=== PATIENT | female | born 1960 | race Caucasian/White ===

== ENCOUNTER → 2017-12-24 08:57 | Outpatient (CLI) | payer OTHER, SELFPAY ==
[2017-12-24 10:43] LABS: Cholesterol 208 mg/dL (200); High Density Lipoprotein 101 mg/dL; Triglycerides 76 mg/dL; Very Low Density Lipoprotein 15 mg/dL (5-40)
== END ==
PROVIDERS: Family Provider Family Medicine; PCP Family Medicine; Visit Provider Family Medicine
DX: E78.5 Hyperlipidemia, unspecified (principal); E11.9 Type 2 diabetes mellitus without complications
CPT/HCPCS: 36415; 80061; 83036

== ENCOUNTER 2018-01-14 13:07 | Day surgery (SDC) | payer OTHER, SELFPAY ==
[2018-01-11 16:58] LABS: Absolute Lymphocyte Count 1.43 X10^3/ul (0.83-4.51); Absolute Neutrophil Count 2.9 X10^3/uL (2.0-7.7); Basophil# 0.02 X10^3/uL; Basophil% 0.4 % (0-1); Eosinophil# 0.14 X10^3/uL; Eosinophils% 2.9 % (0-5); Hematocrit 36.6 % (37-47); Lymphocyte # 1.43 X10^3/ul (4.0); Lymphocyte % 29.4 % (19-41); Mean Corp Hgb Conc 32.8 g/gl (32-36); Mean Corpuscular Hgb 28.3 pg (27.0-32.0); Mean Corpuscular Volume 86.3 fL (81-99); Mean Platelet Vol. 10.1 fl (6.2-12.0); Monocyte# 0.36 X10^3/uL; Monocyte% 7.4 % (0-10); Neutrophil # 2.91 X10^3/uL (2.7-7.7); Neutrophil % 59.7 % (47-70); Platelet Count 234 K/mm3 (150-450); RBC Distribution Width CV 13.4 % (11.6-14.6); RBC Distribution Width SD 42.3 fl (35.1-43.9); Red Blood Count 4.24 M/mm3 (4.2-5.4); White Blood Count 4.9 K/mm3 (4.4-11.0)
[2018-01-11 17:00] LABS: POSITIVE COUNT NO; POSITIVE DIFFERENTIAL NO; POSITIVE MORPHOLOGY NO
[2018-01-11 17:35] LABS: ALB/GLOB Ratio 1.3 RATIO (0.9-2.4); AST(SGOT) 15 U/L (15-37); Alanine Aminotransfer ALT/SGPT 25 U/L (13-56); Alkaline Phosphatase 68 U/L (45-117); Anion Gap 7 (5-15); BUN 22 mg/dL (7-18); BUN/Creat Ratio 22.1 RATIO (10-20); Calcium,Total 8.9 mg/dL (8.5-10.1); Chloride 101 mmol/L (98-107); EST Glomerular Filtration Rate 61 mL/min (>60); Est Glom Filt Rate - Afr Amer 73 mL/min (>60); Globulin 3.1 g/dL (2.2-4.2); Glucose 236 mg/dL (74-106); Potassium 3.6 mmol/L (3.5-5.1); Protein, Total 7.1 g/dL (6.4-8.2); Sodium Level 137 mmol/L (136-145)
[2018-01-14 13:38] VITALS: BP 139/73; PULSE 76; RESP 16; TEMP 36.6; O2SAT 100; BMI 20.2
[2018-01-14 13:56] LABS: Bedside Glucose 102 mg/dL (70-110)
--- NOTE | 2018-01-14 14:45 | RAD_ITS ---
STUDY: X-RAY - LEFT FOOT CLINICAL: Female, 57 years old. Removal of foreign body in OR TECHNIQUE: 9 view(s) of the foot. COMPARISON: None. FINDINGS: 9 saved views were performed , as radiology support for c-arm imaging in the operating room. This is not a diagnostic examination. Images for for documentation purposes only. A total of 16 images acquired with total exposure time 3 minutes 43 seconds and a total DAP of [phone]. RAD/Foot 2 Views IMPRESSION: Fluoroscopic-guided images as above. Electronically Signed: Hortencia Bernard MD at 0:27 EST , Service support ,
[2018-01-14 16:45] LABS: Bedside Glucose 87 mg/dL (70-110)
[2018-01-14] MEDS: Cefazolin 2 GM in 0.9% Normal Saline 100 ML IV (16:45)
[2018-01-14] MEDS: Bupivacaine 0.25% 30 ML Vial (17:07)
--- NOTE | 2018-01-14 17:30 | DCINST_ITS ---
Discharge Diet: Light diet - advance as tolerated Weight Bearing Status: Partial weight bearing - Avoid weight on left forefoot ( ball of foot), ok to apply weight on heel Keep extremity elevated above heart level: Left Leg - Keep left foot elevated as much as possible Call your doctor if your incision/area has: Continuous Slow Oozing, Sudden Increased Bleeding, Increased Pain/ Swelling, Foul Smelling Discharge Call your doctor if you observe: Fever of 101 or Higher, Shortness of breath, Chest pain, Increased palpitations (irregular heartbeat), Calf discomfort, Uncontrolled pain Cleanse incision/area with: Do not get Incision Wet, Keep Dressing Clean & Dry Allergies/Adverse Reactions: Allergies Sulfa (Sulfonamide Antibiotics) Adverse Reaction (Verified 01/11/18 14:46) Other over 30 years ago Medications to take at Discharge Amitriptyline HCl 10 mg PO QHS 01/11/18 Metformin HCl 500 mg PO DAILY 01/11/18 Pravastatin Sodium [Pravachol] 10 mg PO QHS 01/11/18 Hydrocodone/Acetaminophen [Vicodin 5-300 mg Tablet] 1 tab PO Q6H PRN PRN 5 Days #20 tab 01/14/18 The following prescriptions were given: Hydrocodone/Acetaminophen [Vicodin 5-300 mg Tablet] 1 tab PO Q6H PRN PRN 5 Days #20 tab PRN Reason: Pain Primary Care Physician: Ryan Nava MD [Primary Care Provider] - Please Follow Up With: Justyn Moore DPM When: within 1 week or sooner if needed
--- NOTE | 2018-01-14 17:30 | PCM.OPRPT ---
Report of Operation Date of Procedure: 01/14/18 Pre-Operative Diagnosis: Foreign body left foot Post-Operative Diagnosis: Same Surgery/Procedure Performed:: Removal of foreign body from left foot Description of Surgical Findings:: piece of seashell in left foot which was removed public health training assistant: Yes - Dr. Blackwell Type of Anesthesia:: Local MAC Specimen's removed: None Estimated Blood Loss (mL): 1mL Description of Procedure: Indications: This is a 57 year old female who stepped on a seashell several months ago. A piece of the shell broke off and retained in the plantar left foot, which is causing pain and symptoms. This piece of shell is seen on xray. Given the findings she elected to have it removed. This procedure was discussed with her in detail, reviewed the possible benefits vs risks. Reviewed the goals and the expectations. Typical/estimated healing time was discussed and reviewed with her. All of her questions were answered. The consent forms were reviewed with her and she freely signed them. Operative procedure: The patient was brought back into the operating room and was placed on the operating room table in the supine position. She was carefully secured to the operating room table with a safely belt around her waist. The patient was given 2g of IV ancef for antibiotic prophylaxis. The patient received MAC anesthesia, and after the overlying skin was cleansed with 70% isopropyl alcohol 0.25% Marcaine was used to perform a block around the foreign body site. A well padded pneumatic tourniquet was applied around her left ankle. The left foot was scrubbed, prepped, draped in the usual aseptic fashion. The left foot was elevated for 2 minutes and the left ankle pneumatic tourniquet was inflated to 250mmHg. The foreign body was identified using intra operative fluoroscopy. A small linear skin incision was made to the plantar medial forefoot sub 1st intermetatarsal space. The patient did have pain so additional local anesthesia was given using 1% Lidocaine plain. Pain was controlled. Careful blunt dissection was completed down through the subcutaneous tissue layer to the foreign body. It was deep in the fascial space. The foreign body was identified using fluoroscopy and removed using a hemostat. The foreign body was hard, sharp and white in appearance consistent with a broken piece of seashell. The foreign body was placed in a sterile container and was given to the patient afterwards. Removal of the foreign body was confirmed on intra operative fluoroscopy. All remaining tissues appeared healthy and viable. There was no evidence of infection. The site was flushed out with copious amounts of normal saline solution. The skin was reapproximated using 3-0 Nylon. A dressing was applied which consisted of Betadine soaked adaptic, 4x4 gauze, Kerlix and joe bandage. The patient tolerated the above procedure well and the anesthesia well with no complications. Post operative orders were placed. Post operative instructions were reviewed with patient and her . Vicodin 5mg/300mg 1 PO q 6 hours was prescribed for pain control. The patient is to follow up in 1 week or sooner if needed. Grafts/Implants Used: None - Complications None
[2018-01-14 17:31] VITALS: BP 139/73; BP 141/76; PULSE 64; RESP 16; TEMP 37.2; O2SAT 99
[2018-01-14 17:35] VITALS: BP 136/77; BP 139/73; PULSE 65; RESP 16; O2SAT 100
[2018-01-14 17:40] VITALS: BP 127/73; BP 139/73; PULSE 64; RESP 16; O2SAT 100
[2018-01-14 17:47] VITALS: BP 139/73; BP 140/74; PULSE 63; RESP 16; TEMP 36.7; O2SAT 100
[2018-01-14 18:03] VITALS: BP 139/73
== END 2018-01-14 18:33 | disposition home or self-care (01) ==
LOC: SDC 13:08 → AC 13:11
PROVIDERS: Family Provider Family Medicine; PCP Family Medicine; Visit Provider Podiatrist
PROC: (CPT 28190; principal; 2018-01-14 14:30)
DX: M79.5 Residual foreign body in soft tissue (principal); E11.9 Type 2 diabetes mellitus without complications; E78.00 Pure hypercholesterolemia, unspecified; Z79.84 Long term (current) use of oral hypoglycemic drugs; Z79.899 Other long term (current) drug therapy
CPT/HCPCS: 28190; 36415; 73620; 76000; 80053; 82962; 85025; J7120; J2405

== ENCOUNTER → 2018-04-04 09:07 | Outpatient (CLI) | payer OTHER, SELFPAY ==
[2018-04-04 10:12] LABS: AST(SGOT) 16 U/L (15-37); Alanine Aminotransfer ALT/SGPT 22 U/L (13-56); Albumin, Serum 4.2 g/dL (3.2-5.0); Alkaline Phosphatase 70 U/L (45-117); Anion Gap 7 (5-15); BUN 23 mg/dL (7-18); BUN/Creat Ratio 28.1 RATIO (10-20); Bilirubin, Direct 0.19 mg/dL (0.00-0.30); Calcium,Total 8.8 mg/dL (8.5-10.1); Chloride 105 mmol/L (98-107); Cholesterol 199 mg/dL (200); Creatinine, Serum 0.82 mg/dL (0.55-1.02); EST Glomerular Filtration Rate 76 mL/min (>60); Est Glom Filt Rate - Afr Amer 92 mL/min (>60); Globulin 3.3 g/dL (2.2-4.2); Glucose 111 mg/dL (74-106); High Density Lipoprotein 95 mg/dL; Potassium 4.3 mmol/L (3.5-5.1); Protein, Total 7.5 g/dL (6.4-8.2); Sodium Level 137 mmol/L (136-145); Triglycerides 49 mg/dL; Very Low Density Lipoprotein 10 mg/dL (5-40)
[2018-04-04 10:15] LABS: Microalbumin:Creatinine Ratio 9.4 mg/g CRE (<30 mg/g CRE)
[2018-04-04 10:25] LABS: Hemoglobin A1c 7.2 % (4.2-6.3)
== END ==
PROVIDERS: Family Provider Family Medicine; PCP Family Medicine; Visit Provider Family Medicine
DX: E11.9 Type 2 diabetes mellitus without complications (principal); E78.5 Hyperlipidemia, unspecified
CPT/HCPCS: 36415; 80048; 80061; 80076; 82043; 82570; 83036

== ENCOUNTER → 2018-11-07 07:46 | Outpatient (CLI) | payer OTHER, SELFPAY ==
[2018-11-07 09:04] LABS: AST(SGOT) 16 U/L (15-37); Alanine Aminotransfer ALT/SGPT 25 U/L (13-56); Albumin, Serum 4.2 g/dL (3.2-5.0); Alkaline Phosphatase 71 U/L (45-117); Anion Gap 6 (5-15); BUN 22 mg/dL (7-18); BUN/Creat Ratio 23.2 RATIO (10-20); Bilirubin, Direct 0.18 mg/dL (0.00-0.30); Calcium,Total 9.6 mg/dL (8.5-10.1); Chloride 105 mmol/L (98-107); Cholesterol 237 mg/dL (200); Creatinine, Serum 0.95 mg/dL (0.55-1.02); EST Glomerular Filtration Rate 64 mL/min (>60); Est Glom Filt Rate - Afr Amer 78 mL/min (>60); Globulin 3.6 g/dL (2.2-4.2); Glucose 137 mg/dL (74-106); High Density Lipoprotein 107 mg/dL; Potassium 4.1 mmol/L (3.5-5.1); Protein, Total 7.8 g/dL (6.4-8.2); Sodium Level 138 mmol/L (136-145); Triglycerides 79 mg/dL; Very Low Density Lipoprotein 16 mg/dL (5-40)
== END ==
PROVIDERS: Family Provider Family Medicine; PCP Family Medicine; Referring Provider Family Medicine; Visit Provider Family Medicine
DX: E11.9 Type 2 diabetes mellitus without complications (principal)
CPT/HCPCS: 36415; 80048; 80061; 80076

== ENCOUNTER → 2019-08-08 08:10 | Outpatient (CLI) | payer OTHER, SELFPAY ==
[2019-08-08 08:55] LABS: Anion Gap 8 (5-15); BUN 25 mg/dL (7-18); BUN/Creat Ratio 28.4 RATIO (10-20); Calcium,Total 9.3 mg/dL (8.5-10.1); Chloride 105 mmol/L (98-107); Cholesterol 219 mg/dL (200); Creatinine, Serum 0.88 mg/dL (0.55-1.02); EST Glomerular Filtration Rate 70 mL/min (>60); Est Glom Filt Rate - Afr Amer 84 mL/min (>60); Glucose 118 mg/dL (74-106); High Density Lipoprotein 100 mg/dL; Potassium 4.2 mmol/L (3.5-5.1); Sodium Level 140 mmol/L (136-145); Triglycerides 95 mg/dL; Very Low Density Lipoprotein 19 mg/dL (5-40)
== END ==
PROVIDERS: Family Provider Family Medicine; PCP Family Medicine; Referring Provider Family Medicine; Visit Provider Family Medicine
DX: E11.9 Type 2 diabetes mellitus without complications (principal)
CPT/HCPCS: 36415; 80048; 80061

== ENCOUNTER → 2020-06-04 07:44 | Outpatient (CLI) | payer OTHER, SELFPAY ==
[2020-06-04 08:30] LABS: Anion Gap 3 (5-15); BUN 19 mg/dL (7-18); BUN/Creat Ratio 23.1 RATIO (10-20); Chloride 106 mmol/L (98-107); Cholesterol 226 mg/dL (200); Creatinine, Serum 0.82 mg/dL (0.55-1.02); EST Glomerular Filtration Rate 75 mL/min (>60); Est Glom Filt Rate - Afr Amer 91 mL/min (>60); Glucose 134 mg/dL (74-106); High Density Lipoprotein 114 mg/dL; Potassium 4.2 mmol/L (3.5-5.1); Sodium Level 136 mmol/L (136-145); Triglycerides 75 mg/dL; Very Low Density Lipoprotein 15 mg/dL (5-40)
== END ==
PROVIDERS: PCP Family Medicine; Referring Provider Family Medicine; Visit Provider Family Medicine
DX: E11.9 Type 2 diabetes mellitus without complications (principal)
CPT/HCPCS: 36415; 80048; 80061

== ENCOUNTER → 2020-10-12 08:33 | Outpatient (CLI) | payer OTHER, SELFPAY ==
[2020-10-12 09:59] LABS: Anion Gap 4 (5-15); BUN 18 mg/dL (7-18); BUN/Creat Ratio 21.4 RATIO (10-20); Calcium,Total 9.7 mg/dL (8.5-10.1); Chloride 104 mmol/L (98-107); Cholesterol 213 mg/dL (200); Creatinine, Serum 0.84 mg/dL (0.55-1.02); EST Glomerular Filtration Rate 73 mL/min (>60); Est Glom Filt Rate - Afr Amer 88 mL/min (>60); Glucose 133 mg/dL (74-106); High Density Lipoprotein 107 mg/dL; Sodium Level 138 mmol/L (136-145); Triglycerides 59 mg/dL; Very Low Density Lipoprotein 12 mg/dL (5-40)
== END ==
PROVIDERS: PCP Family Medicine; Referring Provider Family Medicine; Visit Provider Family Medicine
DX: E11.9 Type 2 diabetes mellitus without complications (principal)
CPT/HCPCS: 36415; 80048; 80061

== ENCOUNTER → 2020-12-16 14:38 | Outpatient (CLI) | payer OTHER, SELFPAY ==
--- NOTE | 2020-12-16 14:43 | RAD_ITS ---
STUDY: X-RAY - LEFT ANKLE REASON FOR EXAM: Pain and weakness at the lateral aspect of the ankle, twisting injury of the ankle on 10/24/2020. TECHNIQUE: 3 view(s) of the ankle. COMPARISON: None. FINDINGS: Normal visualized distal tibia and fibula. Normal medial and lateral malleoli. Normal tibiotalar articulation and ankle mortise. There is a small posterior calcaneal enthesophyte. The visualized subtalar, talonavicular, calcaneocuboid and tarsal articulations are normal. The soft tissue structures are unremarkable. RAD/Ankle min 3 Views IMPRESSION: Small posterior calcaneal enthesophyte. Otherwise, unremarkable x-ray examination of the left ankle. Electronically Signed: Jorje Singh MD at 15:10 EST Tel , Service support ,
== END ==
PROVIDERS: PCP Family Medicine; Referring Provider Family Medicine; Visit Provider Family Medicine
DX: S99.912A Unspecified injury of left ankle, initial encounter (principal); X58.XXXA Exposure to other specified factors, initial encounter; Y93.9 Activity, unspecified; Y92.9 Unspecified place or not applicable; Y99.9 Unspecified external cause status
CPT/HCPCS: 73610

== ENCOUNTER 2021-01-27 08:00 | Outpatient (RCR) | payer OTHER, SELFPAY ==
[2021-01-27] MEDS: COVID-19 VACC, MRNA(PFIZER)/PF 30 MCG/0.3 ML SYRINGE IM (17:04)
== END 2021-04-26 23:59 ==
LOC: IMMUN 08:00
PROVIDERS: PCP Family Medicine; Visit Provider Family Medicine
DX: Z23 Encounter for immunization (principal)
CPT/HCPCS: 0001A; 91300

== ENCOUNTER 2021-02-23 10:00 | Outpatient (RCR) | payer OTHER, SELFPAY ==
--- NOTE | 2020-12-22 15:22 | HP.PTEVAL ---
Patient's Visit Information RHIANNON PECK is a 59 year old F referred to Physical Therapy by Dr. Ryan Nava MD with a diagnosis of L ankle pain. Date of Evaluation: 12/22/20 Physical Therapist: Eugenio Nichole, PT, ATC - Visit Plan Frequency: 2-3x /Week Duration: 4-6 Weeks Plan: L ankle stretching and strengthening, balance and proprio, nustep, and HEP - Subjective Pt reports she has chronically sprained her L ankle for several years. Pt reports she did have PT in the past, which did help. However pt sprained her L ankle 2 months ago which is still sore today. Pt reports she is not sure if PT is going to be able to help her, but she is here to find out. Pt reports she wears a sleeve on L ankle which helps to decrease her pain. Pt reports she has had a recent xray which revealed mild OA. Pt reports she is starting to get pains up the lateral aspect of L LE and that is what made her go to her Doctor. No tingling or numbness at this time in L LE. Pt reports sleep difficulty secondary to pain. 2/10 pain in L ankle at rest, 3/10 pain at worst - Pain L ankle Pain Intensity (Out of 10): 2 Pain Intensity Range: 3 - Objective Neuro: B LE sensation is WNL to light touch. B patellar reflex= 2/3. Girth at ankle: B ankles 49 cm. Palpation: Pt is sore along the ant talofib lig and calaneal fib lig. No obvious deformity. Pain along peroneal muscle groups as well. ROM: R ankle DF= 3, PF= 65; L ankle DF= 0, PF= 65. MMT: L ankle DF and eversion= 4-/5. All other B ankle MMT 5/5 throughout. SLS: L LE with EC sig sway and LOB x 5 sec. - Goals Goal 1:: Decrease L ankle pain x 50% to aid with sleep Goal Time Frame: 4-6 Weeks Goal 2:: Increase L ankle strength x 1 grade to aid with return IADL's without difficulty Goal Time Frame: 4-6 Weeks Goal 3:: Increase L LE DF ROM x 10 degrees to aid with preventing future ankle sprains Goal Time Frame: 4-6 Weeks Goal 4:: I with HEP Goal Time Frame: 4-6 Weeks - Rehabilitation Potential Physical Therapy Diagnosis: L ankle pain, weakness, and limited ROM secondary to chronic L ankle sprains Rehabilitation Potential: Good - Anticipated Interventions Patient/Client Instruction: Educate patient on: Condition, Plan of Care For the Purpose of:: To improve self management Therapeutic Exercise to Include: Strength training, Balance training, Gait and locomotor training, Passive ROM, Active ROM, Dynamic Lumbar Stabilization For the Purpose of:: To decrease pain, To increase ROM, To improve muscle performance and motor function Cryotherapy (ice pack, ice massage): Yes For the Purpose of:: To decrease pain Thank you for the opportunity to evaluate your patient. For Medicare and Medicare HMO plans, please review the plan of care and approve it. It will need to be FAXED BACK to us at [phone] for Medicare purposes. For Medicare only, by signing this I certify the plan of care. Please let me know if there are questions or concerns regarding this plan of care. Physician Signature: Date:
--- NOTE | 2021-02-17 11:40 | HP.PT.NRP ---
RHIANNON PECK was seen in my office for initial evaluation on 12/22/20. The following Plan of Care was established for this patient: Initial Frequency: 2-3x /Week Initial Duration: 4-6 Weeks Patient/Client Instruction: Educate patient on: Condition, Plan of Care For the Purpose of:: To improve self management Therapeutic Exercise to Include: Strength training, Balance training, Gait and locomotor training, Passive ROM, Active ROM, Dynamic Lumbar Stabilization For the Purpose of:: To decrease pain, To increase ROM, To improve muscle performance and motor function Cryotherapy (ice pack, ice massage): Yes For the Purpose of:: To decrease pain This patient was last seen in our office . Pertinent comments regarding their Physical therapy will appear below: Pt was treated for 5 PT visits for L ankle pain through the date of 01/10/21. Pt has not returned through todays date and is discontinued at this time. At this point I will be discontinuing this patient from physical therapy. I would be happy to see this patient again in the future if found appropriate by the physician. Thank you! Eugenio Nichole, PT, ATC
--- NOTE | 2021-02-23 10:34 | HP.PTDCSUM ---
It has been my pleasure to treat RHIANNON PECK referred by Dr. Ryan Nava MD, with the diagnosis of L ankle pain for a total of 6 visit(s). Discharge Date: Please see the following information for a summary of their discharge status. Subjective: I dont have any pain unless I move it wrong L ankle Pain Intensity (Out of 10): 0 % Improvement: 75 Objective/Function: L ankle pain is 0/10. L ankle DF ROM 5 degrees. L ankle MMT 5/5 throughout. Pt is I with HEP. Rx goals achieved Goal 1:: Decrease L ankle pain x 50% to aid with sleep Goal Progress: Goal Met Goal 2:: Increase L ankle strength x 1 grade to aid with return IADL's without difficulty Goal Progress: Goal Met Goal 3:: Increase L LE DF ROM x 10 degrees to aid with preventing future ankle sprains Goal Progress: Progressing Goal 4:: I with HEP Goal Progress: Goal Met Plan: Discharge If there are questions or concerns regarding this patient's physical therapy, please feel free to call me at [phone]. Thank you for the referral of this patient. Sincerely, Eugenio Nichole, PT, ATC
== END 2021-02-23 11:00 | disposition home or self-care (01) ==
LOC: PT 10:00
PROVIDERS: PCP Family Medicine; Referring Provider Family Medicine; Visit Provider Family Medicine
DX: M25.572 Pain in left ankle and joints of left foot (principal)
CPT/HCPCS: 97110; 97161; 97164